=== PATIENT | male | born 1955 | race Caucasian/White ===

== ENCOUNTER 2018-02-18 10:54 | Emergency (ER) | payer OTHER ==
[~2018-02-18] VITALS: Ht 170.2 cm; Wt 86.0 kg
[2018-02-18] MEDS ORDERED: BP PO (11:03)
[2018-02-18] MEDS ORDERED: SIMV-259 PO (11:03)
[2018-02-18] MEDS ORDERED: ACETAMINOPHEN 500 MG TABLET PO ONE (12:15)
[2018-02-18 15:09] VITALS: BP 145/89
[2018-02-18] MEDS ORDERED: IBUPROFEN 600 MG TABLET PO ONE (15:15)
== END 2018-02-18 15:20 | disposition home or self-care (01) ==
LOC: EMS 10:56
DX: S09.90XA Unspecified injury of head, initial encounter (principal); S19.9XXA Unspecified injury of neck, initial encounter; I10 Essential (primary) hypertension; E78.00 Pure hypercholesterolemia, unspecified; M25.512 Pain in left shoulder; W01.198A Fall on same level from slipping, tripping and stumbling with subsequent striking against other object, initial encounter; Y93.89 Activity, other specified; Y92.89 Other specified places as the place of occurrence of the external cause; Y99.8 Other external cause status
CPT/HCPCS: 70450; 72125; 99284